=== PATIENT | male | born 1990 | race Hispanic/Latino ===

== ENCOUNTER 2019-10-12 23:37 | Inpatient (IN) | payer BC, MEDICAID ==
[~2019-10-12] VITALS: Ht 154.9 cm; Wt 166.6 kg
[2019-10-13] MEDS ORDERED: ALBUTEROL INHALER 90MCG/INH IH ONE (00:14)
[2019-10-13] MEDS ORDERED: DEXAMETHASONE SOD PHOSPHATE 10MG/ML 1ML VIAL ONE (00:20)
[2019-10-13] MEDS ORDERED: ACETAMINOPHEN EXTRA STRENGTH 500 MG TABLET ONE (00:20)
[2019-10-13 01:24] LABS: CREATININE 0.9 mg/dL (0.5-1.5); POTASSIUM 3.7 mmol/L (3.5-5.1)
[2019-10-13 01:29] LABS: ALBUMIN 3.3 g/dL (3.5-5.0); BILIRUBIN,TOTAL 0.9 mg/dL (0.2-1.0); TOTAL PROTEIN, SERUM 7.8 g/dL (6.0-8.3)
[2019-10-13] MEDS ORDERED: LEVOFLOXACIN 500 MG/D5W 100 ML 100 ML ONE (01:44)
[2019-10-13 02:18] LABS: BASOPHILS % (AUTO) 0.3 % (0.0-5.0); EOSINOPHILS % (AUTO) 0.2 % (0.0-8.0); LYMPHOCYTES % (AUTO) 9.6 % (21.0-51.0); MEAN CORPUSCULAR HEMOGLOBIN 32.2 pg (27.0-33.0); MEAN CORPUSCULAR HGB CONC 35.1 g/dL (32.0-36.0); MEAN CORPUSCULAR VOLUME 91.8 fL (79-99); MONOCYTES % (AUTO) 4.8 % (3.0-13.0); NEUTROPHILS % (AUTO) 84.4 % (40.0-77.0); PLATELET COUNT (AUTO) 163 K/uL (130-400); RED CELL DISTRIBUTION WIDTH 12.7 % (11.0-15.5); WHITE BLOOD COUNT (AUTO) 10.9 K/uL (4.8-10.8)
[2019-10-13 02:47] LABS: INR 1.11 (0.85-1.15); PARTIAL THROMBOPLASTIN TIME 32.7 SEC (26.3-35.5); PROTHROMBIN TIME 11.9 SEC (9.6-11.6)
[2019-10-13] MEDS ORDERED: ALBUTEROL INHALER 90MCG/INH IH PRN (03:45)
[2019-10-13] MEDS ORDERED: ONDANSETRON HCL 4 MG/2 ML VIAL IV PRN (03:45)
[2019-10-13] MEDS ORDERED: ACETAMINOPHEN 325 MG TAB PO PRN ×2 (03:45)
[2019-10-13] MEDS ORDERED: LACTULOSE 20 GM/30 ML UDCUP PO PRN (03:45)
[2019-10-13] MEDS ORDERED: IOHEXOL 350 MG/ML 100ML INFUS..BTL IV ONE (05:02)
[2019-10-13 06:53] LABS: BASOPHILS % (AUTO) 0.1 % (0.0-5.0); HEMATOCRIT 47.1 % (42-54); LYMPHOCYTES % (AUTO) 5.5 % (21.0-51.0); MEAN CORPUSCULAR HEMOGLOBIN 32.1 pg (27.0-33.0); MEAN CORPUSCULAR HGB CONC 34.6 g/dL (32.0-36.0); MEAN CORPUSCULAR VOLUME 92.9 fL (79-99); MONOCYTES % (AUTO) 2.3 % (3.0-13.0); NEUTROPHILS % (AUTO) 90.7 % (40.0-77.0); PLATELET COUNT (AUTO) 169 K/uL (130-400); RED BLOOD CELL COUNT(AUTO) 5.07 MIL/uL (4.50-6.20); RED CELL DISTRIBUTION WIDTH 12.6 % (11.0-15.5); WHITE BLOOD COUNT (AUTO) 8.6 K/uL (4.8-10.8)
[2019-10-13 07:09] LABS: POTASSIUM 4.3 mmol/L (3.5-5.1)
[2019-10-13] MEDS ORDERED: FAMOTIDINE 20MG TAB 20 MG TAB ONE (07:51)
[2019-10-13] MEDS ORDERED: METHYLPREDNISOLONE SOD SUCC 40MG/ML 1ML ONE (07:51)
[2019-10-13] MEDS ORDERED: ENOXAPARIN SODIUM 40 MG/0.4 ML SYRINGE SQ ONE (07:52)
[2019-10-13] MEDS: METHYLPREDNISOLONE SOD SUCC 40MG/ML 1ML IVP SCH ×3 (08:00→23:11)
[2019-10-13] MEDS ORDERED: ENOXAPARIN SODIUM 40 MG/0.4 ML SYRINGE SQ SCH (09:00)
[2019-10-13] MEDS: FAMOTIDINE 20MG TAB 20 MG TAB PO SCH ×2 (09:00→20:00)
[2019-10-13] MEDS ORDERED: AZITHROMYCIN 500MG+NS 250ML 250 ML IV SCH (12:00)
--- NOTE | 2019-10-13 13:37 | NUR ---
CM NOTE/IA UNSUCCESSFUL PATIENT IN RESTRICTIVE PART OF ED, UNABLE TO SEE FACE TO FACE. SIBLING, FARTUN MCCOY CALLED, NO ANSWER. CM TO FOLLOW UP FOR IA. Addendum: 10/13/19 at 1338 by NILSA ORDOÑEZ RN CM Amended: Links added.
--- NOTE | 2019-10-13 14:11 | NUR ---
CM NOTE/IA SIBLING, NADINE WILLOUGHBY, CALLED ME BACK. IA QUESTIONS ASKED. PER SIBLING, PATIENT LIVES WITH HER, NO USE OF DME OR OTHER COMMUNITY SERVICES, IS INDEPENDENT WITH ADLS, DRIVES, WORKS QUALITY AUDITOR, AND FEELS SAFE FOR PATIENT TO RETURN HOME ONCE DISCHARGED FROM HOSPITAL. Addendum: 10/13/19 at 1414 by NILSA ORDOÑEZ RN CM Amended: Links added.
[2019-10-13 15:00] VITALS: BP 137/70
[2019-10-13] MEDS: AZITHROMYCIN 250 MG TABLET PO SCH (16:53)
[2019-10-13] MEDS: ENOXAPARIN SODIUM 60 MG/0.6 ML SQ SCH (19:59)
[2019-10-13 23:37] VITALS: BP 132/41
[2019-10-14] MEDS ORDERED: LEVOFLOXACIN 500 MG/D5W 100 ML 100 ML IV SCH
[2019-10-14 03:36] VITALS: BP 114/64
[2019-10-14 05:09] LABS: BASOPHILS % (AUTO) 0.1 % (0.0-5.0); HEMATOCRIT 46.6 % (42-54); LYMPHOCYTES % (AUTO) 6.4 % (21.0-51.0); MEAN CORPUSCULAR HEMOGLOBIN 31.9 pg (27.0-33.0); MEAN CORPUSCULAR HGB CONC 34.3 g/dL (32.0-36.0); MEAN CORPUSCULAR VOLUME 92.8 fL (79-99); MONOCYTES % (AUTO) 6.6 % (3.0-13.0); NEUTROPHILS % (AUTO) 85.7 % (40.0-77.0); PLATELET COUNT (AUTO) 222 K/uL (130-400); RED BLOOD CELL COUNT(AUTO) 5.02 MIL/uL (4.50-6.20); RED CELL DISTRIBUTION WIDTH 12.4 % (11.0-15.5); WHITE BLOOD COUNT (AUTO) 13.8 K/uL (4.8-10.8)
[2019-10-14 05:32] LABS: CRP QUANTITATIVE 70.9 mg/L (0.00-9.0); POTASSIUM 3.8 mmol/L (3.5-5.1)
[2019-10-14] MEDS: METHYLPREDNISOLONE SOD SUCC 40MG/ML 1ML IVP SCH ×3 (07:56→23:05)
[2019-10-14] MEDS: FAMOTIDINE 20MG TAB 20 MG TAB PO SCH ×2 (07:56→21:01)
[2019-10-14] MEDS: ENOXAPARIN SODIUM 60 MG/0.6 ML SQ SCH ×2 (07:57→21:02)
[2019-10-14 08:21] VITALS: BP 124/70
[2019-10-14 10:44] LABS: BASOPHILS % (AUTO) 0.2 % (0.0-5.0); HEMATOCRIT 48.3 % (42-54); LYMPHOCYTES % (AUTO) 6.5 % (21.0-51.0); MEAN CORPUSCULAR HEMOGLOBIN 31.3 pg (27.0-33.0); MEAN CORPUSCULAR HGB CONC 33.7 g/dL (32.0-36.0); MEAN CORPUSCULAR VOLUME 92.9 fL (79-99); MONOCYTES % (AUTO) 6.2 % (3.0-13.0); PLATELET COUNT (AUTO) 240 K/uL (130-400); RED CELL DISTRIBUTION WIDTH 12.4 % (11.0-15.5); WHITE BLOOD COUNT (AUTO) 17.5 K/uL (4.8-10.8)
[2019-10-14 11:06] LABS: POTASSIUM 3.8 mmol/L (3.5-5.1)
[2019-10-14 12:37] VITALS: BP 135/51
[2019-10-14] MEDS: AZITHROMYCIN 250 MG TABLET PO SCH (16:16)
[2019-10-14 16:19] VITALS: BP 137/81
[2019-10-14 16:23] LABS: BASOPHILS % (AUTO) 0.1 % (0.0-5.0); HEMATOCRIT 45.2 % (42-54); LYMPHOCYTES % (AUTO) 4.2 % (21.0-51.0); MEAN CORPUSCULAR HEMOGLOBIN 31.8 pg (27.0-33.0); MEAN CORPUSCULAR HGB CONC 34.3 g/dL (32.0-36.0); MEAN CORPUSCULAR VOLUME 92.6 fL (79-99); MONOCYTES % (AUTO) 6.3 % (3.0-13.0); NEUTROPHILS % (AUTO) 88.4 % (40.0-77.0); PLATELET COUNT (AUTO) 245 K/uL (130-400); RED BLOOD CELL COUNT(AUTO) 4.88 MIL/uL (4.50-6.20); RED CELL DISTRIBUTION WIDTH 12.3 % (11.0-15.5); WHITE BLOOD COUNT (AUTO) 17.1 K/uL (4.8-10.8)
[2019-10-14 16:47] LABS: CREATININE 1.1 mg/dL (0.5-1.5)
[2019-10-14 22:30] VITALS: BP 136/65
[2019-10-14 23:59] VITALS: BP 107/72
[2019-10-15 04:29] VITALS: BP 115/72
[2019-10-15 06:15] LABS: HEMATOCRIT 46.1 % (42-54); MEAN CORPUSCULAR HEMOGLOBIN 31.6 pg (27.0-33.0); MEAN CORPUSCULAR HGB CONC 33.4 g/dL (32.0-36.0); MEAN CORPUSCULAR VOLUME 94.7 fL (79-99); PLATELET COUNT (AUTO) 273 K/uL (130-400); RED BLOOD CELL COUNT(AUTO) 4.87 MIL/uL (4.50-6.20); RED CELL DISTRIBUTION WIDTH 12.6 % (11.0-15.5); WHITE BLOOD COUNT (AUTO) 18.1 K/uL (4.8-10.8)
[2019-10-15 06:45] LABS: ALBUMIN 2.9 g/dL (3.5-5.0); BILIRUBIN,TOTAL 0.8 mg/dL (0.2-1.0); CREATININE 0.9 mg/dL (0.5-1.5); CRP QUANTITATIVE 54.4 mg/L (0.00-9.0); TOTAL PROTEIN, SERUM 7.3 g/dL (6.0-8.3)
[2019-10-15 07:58] LABS: BAND NEUTROPHILS % (MANUAL) 2 % (0-2); LYMPHOCYTES % (MANUAL) 7 % (22-44); MAN.DIFF COMMENT-IMPRESSION MANUAL DIFFERENTIAL; MONOCYTES % (MANUAL) 5 % (2-9); PLATELET MORPHOLOGY COMMENT ADEQUATE; SEGMENTED NEUTROPHILS % 86 % (40-70)
[2019-10-15 08:07] VITALS: BP 124/71
[2019-10-15] MEDS: METHYLPREDNISOLONE SOD SUCC 40MG/ML 1ML IVP SCH ×2 (09:20→15:27)
[2019-10-15] MEDS: FAMOTIDINE 20MG TAB 20 MG TAB PO SCH ×2 (09:21→20:53)
[2019-10-15] MEDS: ENOXAPARIN SODIUM 60 MG/0.6 ML SQ SCH ×2 (09:21→20:54)
[2019-10-15] MEDS: GUAIFENESIN-DM 200/20 MG 10 ML PO SCH ×3 (10:27→20:53)
[2019-10-15 11:50] VITALS: BP 154/78
[2019-10-15] MEDS: AZITHROMYCIN 250 MG TABLET PO SCH (15:27)
[2019-10-15 15:56] VITALS: BP 125/71
[2019-10-15 20:14] VITALS: BP 123/59
--- NOTE | 2019-10-15 22:00 | NUR ---
PT IS ABLE TO AMBULATE. SOB NOTED. WAS ABLE TO SHOWER. TAKES MEDS WELL. 90% AVD O2 LEVEL WITH 3LPM.
[2019-10-16] VITALS (8 sets, daily range): BP systolic 102–135; BP diastolic 56–70
[2019-10-16] MEDS: METHYLPREDNISOLONE SOD SUCC 40MG/ML 1ML IVP SCH ×4 (00:18→23:27)
--- NOTE | 2019-10-16 01:50 | NUR ---
CONVALESCENT PLASMA INITIATED AT THIS TIME.
[2019-10-16] MEDS: GUAIFENESIN-DM 200/20 MG 10 ML PO SCH ×4 (04:45→21:32)
[2019-10-16 06:57] LABS: HEMATOCRIT 45.4 % (42-54); MEAN CORPUSCULAR HEMOGLOBIN 31.9 pg (27.0-33.0); MEAN CORPUSCULAR HGB CONC 33.5 g/dL (32.0-36.0); MEAN CORPUSCULAR VOLUME 95.4 fL (79-99); PLATELET COUNT (AUTO) 282 K/uL (130-400); RED BLOOD CELL COUNT(AUTO) 4.76 MIL/uL (4.50-6.20); RED CELL DISTRIBUTION WIDTH 12.4 % (11.0-15.5); WHITE BLOOD COUNT (AUTO) 11.7 K/uL (4.8-10.8)
[2019-10-16 07:23] LABS: ALBUMIN 2.9 g/dL (3.5-5.0); BILIRUBIN,TOTAL 0.8 mg/dL (0.2-1.0); CREATININE 0.9 mg/dL (0.5-1.5); POTASSIUM 3.8 mmol/L (3.5-5.1); TOTAL PROTEIN, SERUM 7.3 g/dL (6.0-8.3)
[2019-10-16] MEDS: FAMOTIDINE 20MG TAB 20 MG TAB PO SCH ×2 (08:38→21:32)
[2019-10-16] MEDS: ENOXAPARIN SODIUM 60 MG/0.6 ML SQ SCH ×2 (08:39→21:38)
[2019-10-16 09:34] LABS: LYMPHOCYTES % (MANUAL) 1 % (22-44); MAN.DIFF COMMENT-IMPRESSION MANUAL DIFFERENTIAL; MONOCYTES % (MANUAL) 3 % (2-9); PLATELET MORPHOLOGY COMMENT ADEQUATE; SEGMENTED NEUTROPHILS % 96 % (40-70)
--- NOTE | 2019-10-16 12:30 | NUR ---
DR KENNA PIERSON ROUNDED ON PATIENT NO NEW ORDERS RECEIVED
[2019-10-16] MEDS ORDERED: REMDESIVIR (INVESTIGATIONAL) 100 MG in SODIUM CHLORIDE 0.9% 250 ML IV SCH (13:45)
[2019-10-16] MEDS: AZITHROMYCIN 250 MG TABLET PO SCH (14:57)
--- NOTE | 2019-10-16 19:15 | NUR ---
REPORT RECEIVED FROM MARCELO FITCH. PT LAYING IN BED TALKING ON PERSONAL PHONE, NO DISTRESS NOTED.
[2019-10-17 03:23] VITALS: BP_SYST 102; BP_SYST 131; BP_DIAS 53; BP_DIAS 76
[2019-10-17 04:47] LABS: BASOPHILS % (AUTO) 0.9 % (0.0-5.0); HEMATOCRIT 45.7 % (42-54); LYMPHOCYTES % (AUTO) 5.6 % (21.0-51.0); MEAN CORPUSCULAR HEMOGLOBIN 32.7 pg (27.0-33.0); MEAN CORPUSCULAR VOLUME 93.5 fL (79-99); MONOCYTES % (AUTO) 5.7 % (3.0-13.0); NEUTROPHILS % (AUTO) 81.3 % (40.0-77.0); PLATELET COUNT (AUTO) 304 K/uL (130-400); RED BLOOD CELL COUNT(AUTO) 4.89 MIL/uL (4.50-6.20); WHITE BLOOD COUNT (AUTO) 12.9 K/uL (4.8-10.8)
[2019-10-17 05:04] LABS: ALBUMIN 2.9 g/dL (3.5-5.0); BILIRUBIN,TOTAL 0.9 mg/dL (0.2-1.0); CREATININE 0.8 mg/dL (0.5-1.5); CRP QUANTITATIVE 24.6 mg/L (0.00-9.0); POTASSIUM 4.1 mmol/L (3.5-5.1); TOTAL PROTEIN, SERUM 7.2 g/dL (6.0-8.3)
[2019-10-17] MEDS: GUAIFENESIN-DM 200/20 MG 10 ML PO SCH ×4 (05:14→21:18)
--- NOTE | 2019-10-17 07:25 | NUR ---
REPORT GIVEN TO MARCELO VERNON. PT AWAKE AND ALERT, NO DISTRESS NOTED.
[2019-10-17 08:00] VITALS: BP 122/67
[2019-10-17] MEDS: FAMOTIDINE 20MG TAB 20 MG TAB PO SCH ×2 (09:38→21:00)
[2019-10-17] MEDS: METHYLPREDNISOLONE SOD SUCC 40MG/ML 1ML IVP SCH (09:39)
[2019-10-17] MEDS: ENOXAPARIN SODIUM 60 MG/0.6 ML SQ SCH ×2 (10:03→21:19)
[2019-10-17 12:00] VITALS: BP 119/64
--- NOTE | 2019-10-17 12:00 | NUR ---
Will stop Solu iv and start Dexa PO possible D/c tomorrow.
[2019-10-17] MEDS: AZITHROMYCIN 250 MG TABLET PO SCH (13:14)
[2019-10-17 16:20] VITALS: BP 119/54
--- NOTE | 2019-10-17 19:25 | NUR ---
RECEIVED REPORT FROM MARCELO VERNON. PT LAYING SUPINE WITH EYES OPEN. COUGH NOTED, DRY. ROOM AIR. NO DISTRESS NOTED.
[2019-10-17 19:42] VITALS: BP 101/51
[2019-10-18] VITALS (7 sets, daily range): BP systolic 108–135; BP diastolic 46–85
[2019-10-18] MEDS: GUAIFENESIN-DM 200/20 MG 10 ML PO SCH ×4 (03:25→21:47)
[2019-10-18] MEDS: FAMOTIDINE 20MG TAB 20 MG TAB PO SCH ×2 (07:45→20:42)
[2019-10-18] MEDS: ENOXAPARIN SODIUM 60 MG/0.6 ML SQ SCH ×2 (07:45→20:44)
--- NOTE | 2019-10-18 08:00 | NUR ---
ASSESSMENT PT IS AAOX3 DENIES CP DENIES SOB DENIES NV AT THIS TIME. CURRENTLY ON O2 NC AT 2LPM, STATES SHE FEELS FINE LIKE THIS AND IS ABLE TO REST. CALL LIGHT WITHIN REACH.
[2019-10-18 08:04] LABS: BASOPHILS % (AUTO) 0.1 % (0.0-5.0); EOSINOPHILS % (AUTO) 0.1 % (0.0-8.0); HEMATOCRIT 46.8 % (42-54); LYMPHOCYTES % (AUTO) 9.4 % (21.0-51.0); MEAN CORPUSCULAR HEMOGLOBIN 31.6 pg (27.0-33.0); MONOCYTES % (AUTO) 7.1 % (3.0-13.0); NEUTROPHILS % (AUTO) 75.4 % (40.0-77.0); NUCLEATED RED BLOOD CELLS 0.1 % (0.0-0.19); PLATELET COUNT (AUTO) 281 K/uL (130-400); RED BLOOD CELL COUNT(AUTO) 5.03 MIL/uL (4.50-6.20); RED CELL DISTRIBUTION WIDTH 12.3 % (11.0-15.5); WHITE BLOOD COUNT (AUTO) 16.6 K/uL (4.8-10.8)
[2019-10-18 08:30] LABS: ALBUMIN 2.8 g/dL (3.5-5.0); BILIRUBIN,TOTAL 1.1 mg/dL (0.2-1.0); CREATININE 0.8 mg/dL (0.5-1.5); CRP QUANTITATIVE 12.8 mg/L (0.00-9.0); POTASSIUM 3.6 mmol/L (3.5-5.1); TOTAL PROTEIN, SERUM 6.8 g/dL (6.0-8.3)
--- NOTE | 2019-10-18 10:22 | NUR ---
PT REQUESTS TO HOLD OFF ON COUGH SYRUP FOR NOW STATES HE IS NOT COUGHING
--- NOTE | 2019-10-18 11:20 | NUR ---
DR PIERSON / LINDA IN PROCESSING INSTRUCTOR ROUNDED ORDERS RECEIVED
[2019-10-18] MEDS: AZITHROMYCIN 250 MG TABLET PO SCH (16:01)
[2019-10-18] MEDS ORDERED: LOPERAMIDE HCL 2 MG CAP PO SCH (16:45)
[2019-10-18] MEDS ORDERED: LOPERAMIDE HCL 2 MG CAP PO PRN (16:45)
--- NOTE | 2019-10-18 18:00 | NUR ---
STATUS RESTING IN BED, ASLEEP. PT EXHIBITS NO VISIBLE SIGNS OF DISTRESS, CALL LIGHT WITHIN REACH.
--- NOTE | 2019-10-18 18:17 | NUR ---
DC Plan Informed patient of possible dc home tomorrow, but need for O2. Patient has no preference in O2 provider, as long as company is in-network with insurance. Per Jose with [facility], they accept [facility]. JOSELYN faxed referral to [facility] with fax confirmation received. CD Addendum: 10/18/19 at 1819 by MARILIA KELLEY CM Amended: Links added.
[2019-10-18] MEDS: DEXAMETHASONE 4 MG TAB PO SCH (20:42)
[2019-10-19 04:08] VITALS: BP 128/74
[2019-10-19] MEDS: GUAIFENESIN-DM 200/20 MG 10 ML PO SCH ×4 (05:08→20:02)
[2019-10-19 06:17] LABS: HEMATOCRIT 48.1 % (42-54); MEAN CORPUSCULAR HEMOGLOBIN 32.4 pg (27.0-33.0); MEAN CORPUSCULAR HGB CONC 35.1 g/dL (32.0-36.0); MEAN CORPUSCULAR VOLUME 92.1 fL (79-99); PLATELET COUNT (AUTO) 328 K/uL (130-400); RED BLOOD CELL COUNT(AUTO) 5.22 MIL/uL (4.50-6.20); RED CELL DISTRIBUTION WIDTH 12.4 % (11.0-15.5); WHITE BLOOD COUNT (AUTO) 12.5 K/uL (4.8-10.8)
[2019-10-19 06:32] LABS: ALBUMIN 3.1 g/dL (3.5-5.0); BILIRUBIN,TOTAL 1.3 mg/dL (0.2-1.0); CREATININE 0.8 mg/dL (0.5-1.5); CRP QUANTITATIVE 48.1 mg/L (0.00-9.0); TOTAL PROTEIN, SERUM 7.2 g/dL (6.0-8.3)
[2019-10-19] MEDS: DEXAMETHASONE 4 MG TAB PO SCH (07:48)
[2019-10-19] MEDS: FAMOTIDINE 20MG TAB 20 MG TAB PO SCH ×2 (07:49→20:02)
[2019-10-19] MEDS: ENOXAPARIN SODIUM 60 MG/0.6 ML SQ SCH ×2 (07:49→20:03)
--- NOTE | 2019-10-19 08:00 | NUR ---
ASSESSMENT PT IS AAOX3 DENIES CP DENIES SOB WHILE AT REST, BUT STATES HE FEELS SHORT OF BREATH WITH EXERTION UP AND DOWN TO THE RESTROOM. DENIES NV. CURRENTLY ON O2 VIA NC. BREATHING PATTERN IS EVEN AND UNLABORED. CALL LIGHT WITHIN REACH.
[2019-10-19 08:48] VITALS: BP 120/66
[2019-10-19] MEDS: METHYLPREDNISOLONE SOD SUCC 40MG/ML 1ML IVP SCH ×3 (09:00→23:52)
[2019-10-19 09:12] LABS: EOSINOPHILS % (MANUAL) 1 % (1-6); LYMPHOCYTES % (MANUAL) 6 % (22-44); MAN.DIFF COMMENT-IMPRESSION MANUAL DIFFERENTIAL; MONOCYTES % (MANUAL) 4 % (2-9); PLATELET MORPHOLOGY COMMENT ADEQUATE; SEGMENTED NEUTROPHILS % 89 % (40-70)
[2019-10-19 12:15] VITALS: BP 114/61
--- NOTE | 2019-10-19 12:30 | NUR ---
MD ROUNDS DR PIERSON / TIM MALDONADO AWNING FINISHER / RUCHI ROUNDED. ORDERS RECEIVED.
[2019-10-19] MEDS: AZITHROMYCIN 250 MG TABLET PO SCH (15:16)
--- NOTE | 2019-10-19 16:30 | NUR ---
STATUS SITTING UPRIGHT IN BED, PATIENT HAD A SHOWER. HOME OXYGEN PORTABLE TANK IS DELIVERED AND PLACED IN ROOM. NO COMPLAINTS. CALL LIGHT WITHIN REACH. PLAN DC HOME TOMORROW PER DR PIERSON.
[2019-10-19 16:37] VITALS: BP 121/65
[2019-10-19 20:00] VITALS: BP 135/71
[2019-10-20] VITALS: BP 129/59
[2019-10-20] MEDS: GUAIFENESIN-DM 200/20 MG 10 ML PO SCH ×2 (03:28→10:48)
[2019-10-20 04:00] VITALS: BP 156/74
[2019-10-20 04:46] VITALS: BP 133/61
[2019-10-20 05:22] LABS: BASOPHILS % (AUTO) 0.1 % (0.0-5.0); LYMPHOCYTES % (AUTO) 3.6 % (21.0-51.0); MEAN CORPUSCULAR HEMOGLOBIN 31.3 pg (27.0-33.0); MEAN CORPUSCULAR HGB CONC 33.7 g/dL (32.0-36.0); MEAN CORPUSCULAR VOLUME 92.8 fL (79-99); MONOCYTES % (AUTO) 4.3 % (3.0-13.0); NEUTROPHILS % (AUTO) 83.5 % (40.0-77.0); PLATELET COUNT (AUTO) 380 K/uL (130-400); RED BLOOD CELL COUNT(AUTO) 5.28 MIL/uL (4.50-6.20); RED CELL DISTRIBUTION WIDTH 12.2 % (11.0-15.5); WHITE BLOOD COUNT (AUTO) 20.8 K/uL (4.8-10.8)
[2019-10-20 05:47] LABS: BILIRUBIN,TOTAL 0.9 mg/dL (0.2-1.0); CREATININE 0.9 mg/dL (0.5-1.5); CRP QUANTITATIVE 32.4 mg/L (0.00-9.0); POTASSIUM 4.5 mmol/L (3.5-5.1); TOTAL PROTEIN, SERUM 7.4 g/dL (6.0-8.3)
[2019-10-20 08:08] VITALS: BP 133/32
[2019-10-20] MEDS: METHYLPREDNISOLONE SOD SUCC 40MG/ML 1ML IVP SCH (10:45)
[2019-10-20] MEDS: FAMOTIDINE 20MG TAB 20 MG TAB PO SCH (10:46)
[2019-10-20] MEDS: ENOXAPARIN SODIUM 60 MG/0.6 ML SQ SCH (10:48)
[2019-10-20 11:03] VITALS: BP 132/83
[2019-10-20] MEDS ORDERED: DEXA6TAB PO (14:51)
--- NOTE | 2019-10-20 16:30 | NUR ---
Discharge instructions completed in the room with pt. Emphasis o dc COVID 19, s/s to monitor for, when to seek emergency care vs dial 911. Reviewed CDC recommendations for prevention of spread in community, self-isolation, etc. Written instructions included in discharge packet. New rx for dexamethasone transmitted to pharmacy of choice, [facility] on [address] in [place]. Discussed purpose, route, frequency, and duration of treatment as well as side effects and adverse effects. PIV removed, tip intact, dressed with sterile 2x2 and tape after hemostasis. Pt applied mask, wheeled to front lobby by [facility] staff for transport home via private car by family. Pt in stable condition at time of discharge.
== END 2019-10-20 16:30 | disposition home or self-care (01) | DRG 177 ==
LOC: EDH 23:37 → EDHIP 10-13 03:39 → 2AH 10-13 14:48
PROVIDERS: ADMIT Internal Medicine; ATTEND Internal Medicine
PROC: 30233K1 Transfusion of Nonautologous Frozen Plasma into Peripheral Vein, Percutaneous Approach (ICD-10-PCS; principal; 2019-10-13)
DX: U07.1 COVID-19 (principal); J12.89 Other viral pneumonia; J96.01 Acute respiratory failure with hypoxia; J45.41 Moderate persistent asthma with (acute) exacerbation; Z68.44 Body mass index [BMI] 60.0-69.9, adult; F17.200 Nicotine dependence, unspecified, uncomplicated; E66.01 Morbid (severe) obesity due to excess calories; Z88.0 Allergy status to penicillin
CPT/HCPCS: 36415; 36430; 71045; 71250; 71275; 80048; 80053; 82550; 82728; 83615; 83880; 84484; 85025; 85378; 85610; 85730; 86140; 86850; 86900; 86901; 86927; 87040; 87486; 87581; 87633; 87635; 87798; 94760; G0378; J1100; J1650; J1956; J2920; J8540; P9017; Q9967